=== PATIENT | female | born 1960 | race Caucasian/White ===

== ENCOUNTER → 2016-09-18 | Outpatient (CLI) | payer OTHER ==
[~2016-09-18] MED LIST: CHOL2000 PO; CYAN100020 PO; CYCL5TAB PO; IBUP-1277 PO; MAGN400T6 PO; MULT-506 PO; RIZA10TA18 PO; VALA500T39 PO; ZINC PO
--- NOTE | 2016-09-19 07:37 | MAMMOGRAPHY REPORT ---
BILATERAL DIGITAL SCREENING MAMMOGRAM TOMOSYNTHESIS WITH CAD: 09/18/2016 CLINICAL HISTORY: Routine screening. Patient has no complaints. TECHNIQUE: Breast tomosynthesis in addition to standard 2D mammography was performed. Current study was also evaluated with a Computer Aided Detection (CAD) system. COMPARISON: Comparison is made to exams dated: 09/14/2015 mammogram, 09/16/2012 mammogram, 11/29/2013 ammogram - [facility], and 11/15/2010 mammogram. BREAST COMPOSITION: The tissue of both breasts is heterogeneously dense, which may obscure small ma sses. FINDINGS: No suspicious masses, calcifications, or areas of architectural distortion are noted in e ither breast. There has been no significant interval change compared to prior exams. IMPRESSION: ACR BI-RADS CATEGORY 1: NEGATIVE There is no mammographic evidence of malignancy. A 1 year screening mammogram is recommended. The p atient will receive written notification of the results. Approximately 10% of breast cancers are not detected with mammography. A negative mammographic repor t should not delay biopsy if a clinically suggestive mass is present. Alicia Bean M.D. /:09/18/2016 16:41:41 Information Services Vice President: Gabrielle DORANTES(Melvina)(M), [facility] letter sent: Normal 1/2 BI-RADS Code: ACR BI-RADS Category 1: Negative
== END | disposition home or self-care (01) ==
LOC: C.MAMM 08:29
PROVIDERS: ATTEND Obstetrics & Gynecology
DX: Z12.31 Encounter for screening mammogram for malignant neoplasm of breast (principal)

== ENCOUNTER → 2017-03-27 | Outpatient (CLI) | payer OTHER ==
[2017-03-27 09:50] LABS: CHOLESTEROL/HDL RATIO 2.2
== END | disposition home or self-care (01) ==
LOC: C.LAB 06:41
PROVIDERS: ATTEND Physician Assistant
DX: Z00.00 Encounter for general adult medical examination without abnormal findings (principal)

== ENCOUNTER → 2017-04-24 | Outpatient (CLI) | payer OTHER ==
--- NOTE | 2017-04-24 08:27 | DIAGNOSTIC IMAGING REPORT ---
CHEST 2 VIEWS ROUTINE HISTORY: Melanoma. COMPARISON: None. FINDINGS: The lungs are clear. Cardiac silhouette is normal in size. No pleural effusions. No pneumothorax. IMPRESSION: No acute process. Electronically signed by: Chilango Park M.D. 04/24/2017 8:25 AM Dictated Date/Time: 04/24/2017 8:24 AM
[2017-04-24 09:37] LABS: BASO ABS # 0.06 K/uL (0-0.2); COMPLETE YES; EOS % 3.6 %; HEMATOCRIT 44.4 % (37-47); IG% 0.2 %; LYMPH % 16.9 %; LYMPH ABS # 1.03 K/uL (1.2-3.4); MEAN CELL VOLUME 101.6 fL (80-100); MEAN CORPUSCULAR HEMOGLOBIN 33.9 pg (25-34); MEAN CORPUSCULAR HGB CONC 33.3 g/dl (32-36); MONO % 9.4 %; NEUT % 68.9 %; PLATELET COUNT 314 K/uL (130-400); RED BLOOD COUNT 4.37 M/uL (4.2-5.4); WHITE BLOOD COUNT 6.09 K/uL (4.8-10.8)
[2017-04-24 09:51] LABS: ALT/SGPT 17 U/L (12-78); BLOOD UREA NITROGEN 8 mg/dl (7-18); BUN/CREATININE RATIO 11.1 (10-20); CALCIUM 9.3 mg/dl (8.5-10.1); CARBON DIOXIDE 32 mmol/L (21-32); CHLORIDE 109 mmol/L (98-107); CREATININE 0.75 mg/dl (0.60-1.20); GLUCOSE 84 mg/dl (70-99); POTASSIUM 4.5 mmol/L (3.5-5.1); SODIUM 142 mmol/L (136-145)
[2017-04-24 09:54] LABS: ALB/GLOB RATIO 1.2 (0.9-2); ALKALINE PHOSPHATASE 69 U/L (45-117); AST/SGOT 17 U/L (15-37)
== END | disposition home or self-care (01) ==
LOC: C.LAB 07:38
PROVIDERS: ATTEND Dermatology
DX: C43.9 Malignant melanoma of skin, unspecified (principal)

== ENCOUNTER → 2017-04-28 | Outpatient (CLI) | payer OTHER | END | disposition home or self-care (01) | LOC: C.LAB 09:49 | PROVIDERS: ATTEND Dermatology | DX: R89.9 Unspecified abnormal finding in specimens from other organs, systems and tissues (principal); E55.9 Vitamin D deficiency, unspecified ==

== ENCOUNTER → 2017-04-30 | Outpatient (CLI) | payer OTHER | END | disposition home or self-care (01) | LOC: C.PATHSPEC 13:04 | PROVIDERS: ATTEND Plastic Surgery | DX: C43.62 Malignant melanoma of left upper limb, including shoulder (principal) ==

== ENCOUNTER → 2017-09-25 | Outpatient (CLI) | payer OTHER | END | disposition home or self-care (01) | LOC: C.LAB 10:05 | PROVIDERS: ATTEND Neuromusculoskeletal Medicine & OMM | DX: M54.2 Cervicalgia (principal); R07.89 Other chest pain; R22.1 Localized swelling, mass and lump, neck; R00.2 Palpitations ==

== ENCOUNTER → 2017-10-05 | Outpatient (CLI) | payer OTHER ==
--- NOTE | 2017-10-06 13:28 | MAMMOGRAPHY REPORT ---
BILATERAL DIGITAL SCREENING MAMMOGRAM TOMOSYNTHESIS WITH CAD: 10/05/2017 CLINICAL HISTORY: Routine screening. Patient has no complaints. TECHNIQUE: Breast tomosynthesis in addition to standard 2D mammography was performed. Current study was also evaluated with a Computer Aided Detection (CAD) system. COMPARISON: Comparison is made to exams dated: 09/18/2016 mammogram, 09/14/2015 mammogram, 11/29/2013 ma mmogram, 09/16/2012 mammogram - [facility], 11/15/2010 mammogram, and 07/30/2007 mamm ogram. BREAST COMPOSITION: The tissue of both breasts is heterogeneously dense, which may obscure small mas ses. FINDINGS: There is a 9 mm asymmetry in the anterior subareolar left breast, best seen on the CC view , for which additional spot compression tomosynthesis views with nipples in profile and possible ultr asound are recommended. There are benign-appearing calcifications in the left breast. No other suspicious mass, architectura l distortion or cluster of microcalcifications is seen bilaterally. IMPRESSION: ACR BI-RADS CATEGORY 0: INCOMPLETE EVALUATION: NEED ADDITIONAL IMAGING EVALUATION The 9 mm asymmetry in the anterior, subareolar left breast on the CC view needs additional evaluation . The patient will be called to schedule an appointment. Approximately 10% of breast cancers are not detected with mammography. A negative mammographic report should not delay biopsy if a clinically suggestive mass is present. Michelle Riddle M.D. ay/:10/05/2017 17:07:03 Acute Dialysis Nurse: Patito RANGEL)(Milind), [facility] letter sent: Addl Imaging 0 BI-RADS Code: ACR BI-RADS Category 0: Incomplete Evaluation: Need Additional Imaging Evaluation
== END | disposition home or self-care (01) ==
LOC: C.MAMM 13:01
PROVIDERS: ATTEND Obstetrics & Gynecology
DX: Z12.31 Encounter for screening mammogram for malignant neoplasm of breast (principal); N64.89 Other specified disorders of breast

== ENCOUNTER → 2017-10-14 | Outpatient (CLI) | payer OTHER ==
--- NOTE | 2017-10-14 09:36 | DIAGNOSTIC IMAGING REPORT ---
SOFT TISS HEAD/NECK-THYROID CLINICAL HISTORY: 57 years-old Female with M54.2 Neck painR07.89 Chest ivdguyakpF59.1 Fullness of neckR00.2. Acute neck pain COMPARISON: None available TECHNIQUE: Multiple real time sonographic images of the thyroid were obtained accessing sears scale appearance and color doppler flow. FINDINGS: MEASUREMENTS: Right lobe: 5.3 x 1.5 x 1.7 cm Left lobe: 4.5 x 1.5 x 1.6 cm Isthmus: 0.4 cm PARENCHYMA: The thyroid parenchymal echotexture is homogeneous. NODULES: No discrete nodules are appreciated. IMPRESSION: Unremarkable sonographic appearance of the thyroid without focal nodule identified. The above report was generated using voice recognition software. It may contain grammatical, syntax or spelling errors. Electronically signed by: Jesus Rosario M.D. 10/14/2017 9:35 AM Dictated Date/Time: 10/14/2017 9:34 AM
== END ==
LOC: C.ULTR 08:47
PROVIDERS: ATTEND Neuromusculoskeletal Medicine & OMM
DX: M54.2 Cervicalgia (principal); R22.1 Localized swelling, mass and lump, neck; R00.2 Palpitations; R07.89 Other chest pain

== ENCOUNTER → 2017-10-14 | Outpatient (CLI) | payer OTHER ==
--- NOTE | 2017-10-15 15:10 | MAMMOGRAPHY REPORT ---
UNILATERAL LEFT DIGITAL DIAGNOSTIC MAMMOGRAM TOMOSYNTHESIS AND TARGETED LEFT ULTRASOUND: 10/14/2017 CLINICAL HISTORY: 57-year-old woman called back from screening mammography for a 9 mm asymmetry in th e anterior subareolar left breast, best seen on the CC view. TECHNIQUE: Breast tomosynthesis in addition to standard 2D mammography was performed. COMPARISON: Comparison is made to exams dated: 10/05/2017 mammogram, 09/18/2016 mammogram, 09/14/2015 ma mmogram, 11/29/2013 mammogram, 09/16/2012 mammogram - [facility], and 11/15/2010 mammog jade. BREAST COMPOSITION: The tissue of the left breast is heterogeneously dense, which may obscure small masses. FINDINGS: Spot compression left CC and MLO tomosynthesis images were obtained. The supplemental kevon synthesis views of the anterior subareolar left breast demonstrate effacement of the 9 mm nodular asy mmetry, best seen on the left CC projection. Currently, no focal area of architectural distortion, d efinite mass or suspicious calcifications are seen. Further evaluation with ultrasound was performed . Targeted ultrasound was performed in the periareolar and retroareolar left breast. There are multipl e prominent and ectatic ducts. Many of the ducts contain internal isoechoic debris, particularly see n in the 12:00 and upper inner quadrant region but also some in the 3:00 periareolar left breast. Th is most likely represents bland debris given that it is present in multiple ducts. Additionally, the patient reports no left nipple discharge. There is no focal ductal dilation or focal intraductal ma ss identified. Overall, no suspicious solid or cystic mass is seen. IMPRESSION: ACR-BI-RADS CATEGORY 3: PROBABLY BENIGN, TARGETED ULTRASOUND ACR-BI-RADS CATEGORY 3: PRO BABLY BENIGN There is effacement of the asymmetry in the anterior subareolar left breast with supplemental tomosyn thesis images and benign duct ectasia identified on targeted ultrasound. Given that the debris is id entified in multiple ducts this most likely represents bland debris or fibrocystic change. However, a short interval follow up left diagnostic tomosynthesis mammogram and ultrasound is recommended to e nsure stability in 6 months. Approximately 10% of breast cancers are not detected with mammography. A negative mammographic report should not delay biopsy if a clinically suggestive mass is present. Michelle Riddle M.D. ay/:10/14/2017 15:19:18 Gas Regulator Repairer Helper: Kym Valencia RT(R)(M), [facility] letter sent: Follow Up Recommended 3 BI-RADS Code: ACR-BI-RADS Category 3: Probably Benign Ultrasound BI-RADS: ACR-BI-RADS Category 3: Pr obably Benign
== END ==
LOC: C.MAMM 14:23
PROVIDERS: ATTEND Obstetrics & Gynecology
DX: N64.89 Other specified disorders of breast (principal)

== ENCOUNTER → 2018-04-09 | Outpatient (CLI) | payer OTHER ==
[~2018-04-09] MED LIST changes: -VALA500T39 PO; +VALA500T41 PO
--- NOTE | 2018-04-09 15:29 | MAMMOGRAPHY REPORT ---
UNILATERAL LEFT DIGITAL DIAGNOSTIC MAMMOGRAM TOMOSYNTHESIS WITH CAD AND LEFT ULTRASOUND: 04/09/2018 CLINICAL HISTORY: Six-month follow-up left breast. The patient reports a history of a right duct exci frances in 2009 for nipple discharge, which yielded benign pathology. The patient denies any left nipple discharge, palpable lumps, or other complaints. 6 Month Follow-up Left. TECHNIQUE: The study was acquired using full field digital technology and interpreted from soft copy. Breast tomosynthesis in addition to standard 2D mammography was performed. Current study was also ev aluated with a Computer Aided Detection (CAD) system. Left CC and MLO 2D and tomosynthesis images we re obtained. COMPARISON: Comparison is made to exams dated: 10/14/2017 mammogram, 10/05/2017 mammogram, 09/18/2016 ma mmogram, 09/14/2015 mammogram, 11/29/2013 mammogram, and 09/16/2012 mammogram - [facility]. BREAST COMPOSITION: The tissue of left breast is heterogeneously dense, which may obscure small denise s. FINDINGS: There are no suspicious masses, calcifications, or areas of architectural distortion noted in the lef t breast. There has been no significant interval change mammographically compared to prior exams. Targeted ultrasound was again performed of the left subareolar breast in the region of the ducts seen on the prior exam. Again noted are prominent ducts throughout the left subareolar breast consistent with duct ectasia. Many of the ducts contain internal isoechoic debris, which appears similar to Oct 2017 exam. No focal intraductal mass is evident. No suspicious masses or other suspicious son ographic abnormalities are seen. Additionally, the patient denies any nipple discharge. IMPRESSION: ACR BI-RADS CATEGORY 2: BENIGN, ULTRASOUND ACR BI-RADS CATEGORY 2: BENIGN Duct ectasia in the left subareolar breast with areas of internal ductal debris appears similar to oct 2018 exam. No focal intraductal mass is evident, and the patient denies any left nipple discha rge. Findings are considered benign and compatible with duct ectasia. There is no mammographic or s onographic evidence of malignancy. Return to annual mammogram screening schedule is recommended, due October 2018. Also recommend clinical follow-up and if the patient develops left nipple discharge, the patient should return for repeat imaging. The patient has been verbally notified of the results. Some breast cancers are not detected with mammography. A negative mammographic report should not raciel y biopsy if a clinically suggestive mass is present. Alicia Bean M.D. ah/:04/09/2018 09:16:34 Landscape Account Manager: RT Kimo(R)(M), [facility]; Alicia Bean MD, [facility] letter sent: Normal 1/2 OVERALL STUDY BIRADS: 2 Benign
== END | disposition home or self-care (01) ==
LOC: C.MAMM 08:50
PROVIDERS: ATTEND Obstetrics & Gynecology
DX: N60.42 Mammary duct ectasia of left breast (principal)

== ENCOUNTER → 2018-04-14 | Outpatient (CLI) | payer OTHER ==
--- NOTE | 2018-04-14 08:26 | DIAGNOSTIC IMAGING REPORT ---
CHEST 2 VIEWS ROUTINE HISTORY: C43.9 Malignant melanoma COMPARISON: Chest 04/24/2017. FINDINGS: The lungs are clear. Cardiac silhouette is normal in size. No pleural effusions. No pneumothorax. IMPRESSION: No acute process. Electronically signed by: Chilango Park M.D. 04/14/2018 8:25 AM Dictated Date/Time: 04/14/2018 8:22 AM
[2018-04-14 10:00] LABS: BASO ABS # 0.04 K/uL (0-0.2); EOS ABS # 0.25 K/uL (0-0.5); HEMATOCRIT 39.9 % (37-47); HEMOGLOBIN 13.2 g/dL (12.0-16.0); LYMPH % 31.4 %; MEAN CORPUSCULAR HEMOGLOBIN 33.4 pg (25-34); MEAN CORPUSCULAR HGB CONC 33.1 g/dl (32-36); MEAN PLATELET VOLUME 9.8 fL (7.4-10.4); MONO % 6.3 %; MONO ABS # 0.26 K/uL (0.11-0.59); NEUT % 55.3 %; NEUT ABS # 2.29 K/uL (1.4-6.5); PLATELET COUNT 255 K/uL (130-400); RED CELL DISTRIBUTION WIDTH CV 12.7 % (11.5-14.5); RED CELL DISTRIBUTION WIDTH SD 46.9 fL (36.4-46.3); WHITE BLOOD COUNT 4.14 K/uL (4.8-10.8)
[2018-04-14 10:43] LABS: ALBUMIN 3.7 gm/dl (3.4-5.0); ALKALINE PHOSPHATASE 65 U/L (45-117); ALT/SGPT 32 U/L (12-78); AST/SGOT 19 U/L (15-37); BLOOD UREA NITROGEN 15 mg/dl (7-18); CALCIUM 8.9 mg/dl (8.5-10.1); CARBON DIOXIDE 28 mmol/L (21-32); CHOLESTEROL 173 mg/dl (0-200); GLUCOSE 75 mg/dl (70-99); GLUCOSE,FASTING 75 mg/dl (70-99); LDL CHOLESTEROL CALCULATED 86 mg/dl; POTASSIUM 4.4 mmol/L (3.5-5.1); SODIUM 142 mmol/L (136-145); TOTAL PROTEIN 6.8 gm/dl (6.4-8.2)
== END | disposition home or self-care (01) ==
LOC: C.RAD 07:51
PROVIDERS: ATTEND Neuromusculoskeletal Medicine & OMM
DX: Z00.00 Encounter for general adult medical examination without abnormal findings (principal); E55.9 Vitamin D deficiency, unspecified; C43.9 Malignant melanoma of skin, unspecified; R89.9 Unspecified abnormal finding in specimens from other organs, systems and tissues

== ENCOUNTER 2021-03-29 11:51 | Observation (INO) ==
--- NOTE | 2021-03-29 13:07 | History & Physical Report ---
Date of Service March 29, 2021 Assessment & Plan (1) Cellulitis of leg: Plan: admit for IV antibiotics, CT ordered will ask hospitalist to see, consider ortho consult depending on CT History of Present Illness Primary Care Provider: William Polo, DO 61 y/o female with worsening cellulitis RLE after I&D was performed in the clinic [address] Todd. Seen in follow-up and sent for additional imaging and IV therapy. Allergies Allergy/AdvReac Type Severity Reaction Status Date / Time No Known Drug Allergies Allergy Unknown . Verified 03/29/21 16:22 Home Medications Medication Instructions Recorded Confirmed Type magnesium 250 mg tablet 500 mg PO QAM 01/20/19 03/29/21 History multivitamin 1 tab PO QAM 04/19/19 03/29/21 History calcium citrate 250 mg PO QAM tab 04/29/19 03/29/21 History cholecalciferol (vitamin D3) 125 5,000 units PO QAM 04/29/19 03/29/21 History mcg (5,000 unit) capsule lactobacillus combination no.4 3 3,000 mmu cells PO QAM 03/22/20 03/29/21 History billion cell capsule (Probiotic) ondansetron 4 mg disintegrating 4 mg PO TID PRN #30 tab 08/03/20 03/29/21 Rx tablet rizatriptan 10 mg tablet 10 mg PO Q2H PRN #9 tab MDD 3 11/09/20 03/29/21 Rx tablets/day prenat.vits,wilmar,qyw-dbvq-mxunm 1 tab PO QAM 02/07/21 03/29/21 History zinc 50 mg tablet 50 mg PO QAM 02/07/21 03/29/21 History cephalexin 500 mg capsule 500 mg PO QID 10 Days #40 cap 03/27/21 03/29/21 Rx valacyclovir 500 mg tablet 500 mg PO QAM 03/29/21 03/29/21 History Past Med/Surg History Medical History Chronic low back pain Family history of [place] (myocardial infarction) Mother Family history of stroke father GERD without esophagitis Migraine with aura and without status migrainosus, not intractable Skin cancer Vitamin D deficiency Surgical History History of colonoscopy History of hysterectomy History of surgery on right wrist ORIF History of tubal ligation History of umbilical hernia repair Hx of breast surgery DUCT REMOVED Hx of melanoma excision LEFT ARM Status post incision and drainage (05/31/20) Incision and drainage and culture of left leg lesion in office 05/31/20 Dr. Todd Status post incision and drainage (03/27/21) I&D of right leg abscess 03/27/21 Dr. Todd in office 03/27/21 Family History Mother Hypertension Hypercholesteremia Heart disease Father Hypercholesteremia Hypertension Diabetes Stroke Grandmother Hypertension Grandmother Hypertension Diabetes Cardiac disorder Grandfather Cardiac disorder Heart disease Aunt Hypertension Uncle Hypertension Denies family history of Ovarian cancer Prostate cancer Myocardial infarction Breast cancer Colorectal cancer Social History Smoking Status: Former smoker Tobacco Type: Cigarettes Second Hand Exposure: No; Do You Dip or Chew Tobacco: No; Tobacco Cessation Education Requested by Patient: No Hx Alcohol Use: Yes Alcohol type: wine Hx Substance Use: No Preferred Language: Maori Communication Ability: Effective Visual Impairment: No Limitations Hearing Ability: Normal Human Resources Coordinator Required: No Beliefs That Will Affect Care: None Current Living Situation: Alone current occupational status: employed current occupation: Registered nurse Other Information That Helps Us Care for You: No Feels Safe at Home: Yes Safety Concerns: Feels Safe At This Time Childhood Exposure to Second-Hand Smoke: No Dental Care, Regularly: Yes Physical Activity Frequency: Daily Seatbelt Use: always Sunscreen Use: Yes Assistive Devices: None Physical Exam Physical Exam: Please see note from clinic visit today Results & Data Results & Data ([facility]) Vital Signs (Past 12 Hours) Vital Signs Temp Pulse Resp BP Pulse Ox 03/29/21 12:05 37.2 C 81 18 118/77 98
[2021-03-29 14:38] LABS: Appearance Urine Clear (Clear); Bilirubin Urine Negative (Negative); Blood Urine Negative (Negative); Color Urine Yellow; Glucose Urine UA Negative (Negative); Ketones Urine Negative (Negative); Leukocyte Esterase Urine Negative (Negative); Nitrite Urine Negative (Negative); Protein Urine Negative (Negative); Specific Gravity Urine 1.007 (1.000-1.030); Urobilinogen Urine Negative (Negative); pH Urine 6.5 (4.5-7.5)
[2021-03-29 14:39] LABS: Basophils # (auto) 0.04 K/uL (0-0.2); Basophils % (auto) 0.5 %; Eosinophils # (auto) 0.19 K/uL (0-0.5); Eosinophils % (auto) 2.2 %; Hematocrit (blood only) 43.9 % (37-47); Hemoglobin 14.8 g/dL (12.0-16.0); Immature Granulocytes # (auto) 0.01 K/uL (0.00-0.02); Immature Granulocytes % (auto) 0.1 %; Lymphocytes # (auto) 1.72 K/uL (1.2-3.4); Lymphocytes % (auto) 19.8 %; Mean Corpuscular Hemoglobin 33.8 pg (25-34); Mean Corpuscular Hgb Conc 33.7 g/dL (32-36); Mean Corpuscular Volume 100.2 fL (80-100); Monocytes # (auto) 0.89 K/uL (0.11-0.59); Monocytes % (auto) 10.3 %; Neutrophils # (auto) 5.82 K/uL (1.4-6.5); Neutrophils % (auto) 67.1 %; Platelet Count 267 K/uL (130-400); RDW Coefficient of Variation 12.7 % (11.5-14.5); RDW Standard Deviation 46.8 fL (36.4-46.3); Red Blood Count 4.38 M/uL (4.2-5.4); White Blood Count 8.67 K/uL (4.8-10.8)
[2021-03-29 15:03] LABS: Albumin Level 4.2 gm/dl (3.4-5.0); BUN Creatinine Ratio 11.7 (10-20); Calcium 9.2 mg/dl (8.5-10.1); Creatinine Clr Calc Pharmacy 68.1 ml/min; Est GFR (African American) 104.5 ml/min; Est GFR (Non-African American) 90.1 ml/min; Potassium 3.5 mmol/L (3.5-5.1)
[2021-03-29 15:06] LABS: Albumin Globulin Ratio 1.1 (0.9-2); Bilirubin,Total 0.7 mg/dl (0.2-1); Globulin 3.9 gm/dl (2.5-4.0); Total Protein 8.1 gm/dl (6.4-8.2)
--- NOTE | 2021-03-29 15:51 | Electrocardiogram Report ---
Test Reason : Blood Pressure : / mmHG Vent. Rate : 065 BPM Atrial Rate : 065 BPM P-R Int : 190 ms QRS Dur : 084 ms QT Int : 404 ms P-R-T Axes : 047 029 057 degrees QTc Int : 420 ms Normal sinus rhythm with sinus arrhythmia no longer present When compared with ECG of 10-FEB-2019 09:45, No significant change Confirmed by Camilo Velasco ([id number]) on 03/29/2021 3:50:30 PM Referred By: REFERRED SELF Confirmed By:Camilo Velasco
[2021-03-29] MEDS ORDERED: oxyCODONE HCL IR 5 MG TAB (IMMEDIATE RELEASE) PO PRN (17:58)
[2021-03-29] MEDS ORDERED: ONDANSETRON INJ 2 MG/ML 2 ML VIAL IV PRN (17:58)
[2021-03-29] MEDS ORDERED: PIPERACILL/TAZOBAC CONSULT ACTIVE PRN (17:58)
[2021-03-29] MEDS ORDERED: RIZATRIPTAN BENZOATE 10 MG TAB PO PRN (17:58)
[2021-03-29] MEDS ORDERED: MoRPHine SULFATE 2 MG/ML CARP IV PRN (17:58)
[2021-03-29] MEDS ORDERED: VANCOMYCIN CONSULT ACTIVE PRN (17:58)
[2021-03-29] MEDS ORDERED: MoRPHine SULFATE 4 MG/ML 1 ML CARP\\VIAL IV PRN (17:58)
[2021-03-29] MEDS ORDERED: ACETAMINOPHEN 325 MG TAB PO PRN (17:58)
[2021-03-29] MEDS ORDERED: PIPERACILLIN/TAZOBACTAM 3.375 GM in DEXTROSE 5% 100 ML IV ONE (18:15)
[2021-03-29] MEDS ORDERED: VANCOMYCIN HCL 1,500 MG in SODIUM CHLORIDE 0.9% 500 ML IV ONE (18:15)
[2021-03-29] MEDS ORDERED: OPTIRAY 320 100ml IV ONE (19:55)
--- NOTE | 2021-03-29 20:25 | CT Scan Report ---
CT knee RT w con HISTORY: 61 years-old Female celluitis RLE acute pain and swelling of the right lower extremity COMPARISON: None TECHNIQUE: Multiple axial CT images of the right lower extremity were obtained following the intraven ous ministration 94 mL Optiray 320. A dose lowering technique was used consistent with the principals of GLENDY. FINDINGS: Mild subcutaneous edema and skin thickening involves the posterior knee. No fluid collection or opaqu e foreign body. No enhancing mass. The musculature is within normal limits. Tendons and ligaments are not well evaluated by CT technique. Minimal tricompartmental osteoarthritis. No large joint effusion . No acute fracture, dislocation, osteochondral defect or intra-articular loose body. IMPRESSION: 1. No acute fracture. 2. Mild subcutaneous edema and skin thickening of the posterior knee suggestive of cellulitis. No flu id collection. 3. No joint effusion. ACT 112: Negative or not required by law. The above report was generated using voice recognition software. It may contain grammatical, syntax o r spelling errors. Electronically signed by: Montez Rosario M.D. 03/29/2021 8:23 PM
--- NOTE | 2021-03-29 21:16 | Pharmacy Report ---
Pharmacy Abx Initial Consult - Date of Service March 29, 2021 - Pharmacy Dosing Scope Date of Consult: 03/29/21 Consultation requested by: James Drake PA-C Pharmacy is consulted to initiate Vancomycin + Zosyn IV/PO dosing therapy, order appropriate labs and adjust drug dose/frequency. - Subjective The patient is a 61 year old F admitted on 03/29/21 13:36 with worsening cellulitis RLE after I&D was performed in the clinic [address] Todd. Seen in follow-up and sent here for additional imaging and IV therapy. - Objective Height: 5 ft 1 in Weight: 56.971 kg Vital Signs (Past 12hrs): Vital Signs Temp Pulse Pulse Resp BP BP Pulse Ox 03/29/21 17:30 36.7 C 78 18 131/82 100 03/29/21 16:16 67 18 151/98 H 99 03/29/21 14:45 69 18 137/84 99 03/29/21 12:05 37.2 C 81 18 118/77 98 Lab Results (24hrs): Laboratory Tests (24 Hours) 03/29/21 03/29/21 14:27 14:27 WBC 8.67 Neut # (Auto) 5.82 Creatinine 0.73 Est Cr Clr Drug Dosing 68.1 - Assessment & Plan Assessment 61 year old F with worsening cellulitis RLE after I&D was performed in the in [address] Todd. Admitted for IV antibiotics and imaging. Afebrile, WBC normal. Plan Vancomycin + Zosyn for treatment of Cellulitis Vancomycin IV 1500mg IV x1 dose at 2037 (25mg/kg) then 1g IV Q12H Patient meets criteria for vancomycin AUC dosing nomogram AUC/SHAYNA is the preferred PK/PD target for vancomycin Target AUC/SHAYNA = 400-600 AUC guided dosing is effective and associated with decreased risk of nephrotoxicity * Trough/Random level ordered for 03/31/21 Piperacillin/tazobactam * 3.375 g bolus administered over 30 minutes, then 3.375 g IV extended infusion every 8 hours for CrCl greater than 20 mL/min Pharmacy will continue to follow and will adjust dose/frequency as necessary. Thank you.
[2021-03-29] MEDS: PIPERACILLIN/TAZOBACTAM 3.375 GM in DEXTROSE 5% 100 ML IV SCH (23:15)
[2021-03-30] MEDS: VANCOMYCIN HCL 1,000 MG in SODIUM CHLORIDE 0.9% 250 ML IV SCH ×2 (06:15→17:51)
[2021-03-30] MEDS: PIPERACILLIN/TAZOBACTAM 3.375 GM in DEXTROSE 5% 100 ML IV SCH ×3 (06:15→22:52)
[2021-03-30 08:15] LABS: Basophils # (auto) 0.04 K/uL (0-0.2); Basophils % (auto) 0.5 %; Eosinophils # (auto) 0.23 K/uL (0-0.5); Eosinophils % (auto) 2.8 %; Hematocrit (blood only) 39.2 % (37-47); Hemoglobin 13.3 g/dL (12.0-16.0); Immature Granulocytes # (auto) 0.01 K/uL (0.00-0.02); Immature Granulocytes % (auto) 0.1 %; Lymphocytes # (auto) 1.28 K/uL (1.2-3.4); Lymphocytes % (auto) 15.8 %; Mean Corpuscular Hemoglobin 34.2 pg (25-34); Mean Corpuscular Hgb Conc 33.9 g/dL (32-36); Mean Corpuscular Volume 100.8 fL (80-100); Mean Platelet Volume 8.8 fL (7.4-10.4); Monocytes # (auto) 0.88 K/uL (0.11-0.59); Monocytes % (auto) 10.9 %; Neutrophils # (auto) 5.66 K/uL (1.4-6.5); Neutrophils % (auto) 69.9 %; Platelet Count 274 K/uL (130-400); RDW Coefficient of Variation 12.7 % (11.5-14.5); Red Blood Count 3.89 M/uL (4.2-5.4)
[2021-03-30] MEDS: MAGNESIUM OXIDE 400 MG TAB PO SCH (08:15)
[2021-03-30] MEDS: terbinafine HCL 250 MG TAB PO SCH (08:15)
[2021-03-30] MEDS: valACYclovir HCL 500 MG TABLET PO SCH (08:15)
[2021-03-30] MEDS: PRENATAL VITAMIN 1 TAB PO SCH (08:15)
[2021-03-30] MEDS: MULTIVITAMIN TAB PO SCH (08:15)
--- NOTE | 2021-03-30 08:34 | Surgery Progress Note ---
Date of Service March 30, 2021 Assessment & Plan (1) Cellulitis of leg: Plan: Overall the patient is markedly improved with the present antibiotic therapy She did states she had multiple tick bites and she pulled 1 out of the area of that she has a cellulitis approximately 2 weeks ago We will order a Lyme test medical service is to see patient making sure that the appropriate test will be ordered and leave it up to the recommendation regarding further antibiotic therapy Admission and Anticipated Discharge Date Admission Date: March 29, 2021 Subjective Feels much better less discomfort Physical Exam Physical Exam: Area of cellulitis is markedly decreased virtually no drainage from the I&D site Results & Data ([facility]) Vital Signs (Past 12 Hours) Vital Signs Temp Pulse Resp BP Pulse Ox 03/30/21 07:00 36.7 C 71 20 100/67 97 03/29/21 23:52 36.7 C 87 16 95/63 L 97 PG Care Time/CCT Total # of Minutes Spent Total Time Spent with Patient: Total time spent is greater than 50% in coordination of care (as documented) at patient's floor/unit and/or counseling patient: Coding Level of Care Code 55244 Subseq Hosp Care Lvl 1 Diagnoses Cellulitis of leg L03.119
[2021-03-30 08:45] LABS: Creatinine Clr Calc Pharmacy 61.8 ml/min; Est GFR (African American) 102.8 ml/min; Est GFR (Non-African American) 88.7 ml/min
[2021-03-30 09:01] LABS: BUN Creatinine Ratio 11.5 (10-20); Calcium 8.8 mg/dl (8.5-10.1); Creatinine Clr Calc Pharmacy 64.4 ml/min; Est GFR (African American) 108.1 ml/min; Est GFR (Non-African American) 93.2 ml/min; Potassium 4.1 mmol/L (3.5-5.1)
[2021-03-30 09:10] LABS: Folate (Folic Acid) > 20.00 ng/ml (>5.38); Vitamin B12 625 pg/ml (193-986)
[2021-03-30 09:54] LABS: Lyme Ab IgG w/WB Rflx Negative (Negative); Lyme Ab IgM w/WB Rflx Negative (Negative)
--- NOTE | 2021-03-30 10:42 | Hospitalist Consultation ---
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 Could not have converted, but either way Doxy will cover at discharge Continue to monitor response (2) Cutaneous abscess of right lower extremity: as above (3) Migraine with aura and without status migrainosus, not intractable: had headache yesterday -- stress/anxiety/infection chronic hx -- triptan available prn (4) DVT prophylaxis: --> Ambulation encouraged --> has been up and walking the halls Dispo: Continue to monitor response on IV abx and plans for d/c tomorrow on Doxy PO --> Plan was discussed with Dr. Xie. Will assist with d/c instructions if needed. History of Present Illness Reason for Consultation: cellulitis Requesting Physician: Dr Xie Attending Physician: Luis Enrique Xie MD, [facility] History of Present Illness 61yo female presented to ER after follow up with general surgery following I&D of abscess to posterior R thigh on 03/27 in the office with Dr. Todd. Patient was sent from office on Keflex and had follow up appointment with Dr. Todd on 03/29 and noted worsening redness/erythema, pain and swelling to her thigh in the area of I&D. No cultures were obtained at that time. She was sent on Keflex and was sent as hopeful direct admit but ended up having to go through the ER. She did note a tick approximately two weeks ago in the same location of cellulitis and we discussed Lyme testing negative. She noted previous abscess on other leg last year -- cultures with gram + bacilli at that time. She was placed on Zosyn and Vanco and noted significant improvement over the past 24 hours She would feel more comfortable if remained on IV antibiotics for overnight. Discussed doxycycline for skin/soft tissue at discharge. Pain controlled and without need for medication at this time. She is to work tomorrow, Thursday and of this week. Jury duty on Thursday. Discussed would remain off for week until infection resolved prior to returning to work. No fever, chills, chest pain, shortness of breath, abdominal pain, nausea or vomiting at this time. No BM but she notes she has not gotten her Metamucil- will order. Recently completed course of antifungal for onchymycosis of great toes -- almost completely resolved. Allergies Allergy/AdvReac Type Severity Reaction Status Date / Time No Known Drug Allergies Allergy Unknown . Verified 03/29/21 16:22 Home Medications Medication Instructions Recorded Confirmed Type magnesium 250 mg tablet 500 mg PO QAM 01/20/19 03/29/21 History multivitamin 1 tab PO QAM 04/19/19 03/29/21 History calcium citrate 250 mg PO QAM tab 04/29/19 03/29/21 History cholecalciferol (vitamin D3) 125 5,000 units PO QAM 04/29/19 03/29/21 History mcg (5,000 unit) capsule lactobacillus combination no.4 3 3,000 mmu cells PO QAM 03/22/20 03/29/21 History billion cell capsule (Probiotic) ondansetron 4 mg disintegrating 4 mg PO TID PRN #30 tab 08/03/20 03/29/21 Rx tablet rizatriptan 10 mg tablet 10 mg PO Q2H PRN #9 tab MDD 3 11/09/20 03/29/21 Rx tablets/day prenat.vits,wilmar,wsx-lcms-uxghw 1 tab PO QAM 02/07/21 03/29/21 History zinc 50 mg tablet 50 mg PO QAM 02/07/21 03/29/21 History cephalexin 500 mg capsule 500 mg PO QID 10 Days #40 cap 03/27/21 03/29/21 Rx valacyclovir 500 mg tablet 500 mg PO QAM 03/29/21 03/29/21 History Patient History Medical History Chronic low back pain Family history of NV (myocardial infarction) Mother Family history of stroke father GERD without esophagitis Migraine with aura and without status migrainosus, not intractable Skin cancer Vitamin D deficiency Surgical History History of colonoscopy History of hysterectomy History of surgery on right wrist ORIF History of tubal ligation History of umbilical hernia repair Hx of breast surgery DUCT REMOVED Hx of melanoma excision LEFT ARM Status post incision and drainage (05/31/20) Incision and drainage and culture of left leg lesion in office 05/31/20 Dr. Todd Status post incision and drainage (03/27/21) I&D of right leg abscess 03/27/21 Dr. Todd in office 03/27/21 Family History Mother Hypertension Hypercholesteremia Heart disease Father Hypercholesteremia Hypertension Diabetes Stroke Grandmother Hypertension Grandmother Hypertension Diabetes Cardiac disorder Grandfather Cardiac disorder Heart disease Aunt Hypertension Uncle Hypertension Denies family history of Ovarian cancer Prostate cancer Myocardial infarction Breast cancer Colorectal cancer Social History Smoking Status: Former smoker Tobacco Type: Cigarettes Second Hand Exposure: No; Do You Dip or Chew Tobacco: No; Tobacco Cessation Education Requested by Patient: No Hx Alcohol Use: Yes Alcohol type: wine Hx Substance Use: No Preferred Language: Bermudian Communication Ability: Effective Visual Impairment: No Limitations Hearing Ability: Normal Shirt Finisher Required: No Beliefs That Will Affect Care: None Current Living Situation: Alone current occupational status: employed current occupation: Registered nurse Other Information That Helps Us Care for You: No Feels Safe at Home: Yes Safety Concerns: Feels Safe At This Time Childhood Exposure to Second-Hand Smoke: No Dental Care, Regularly: Yes Physical Activity Frequency: Daily Seatbelt Use: always Sunscreen Use: Yes Assistive Devices: None Review of Systems Review of Systems: All systems reviewed & are unremarkable except as noted in HPI & below Physical Exam Physical Exam: WN, WD, laying in bed on phone. No acute distress Eyes anicteric, no scleral abn appreciated ENT mmm, trachea midline without deviation Resp: CTAB, no accessory muscle use, no w/c/r CV: RRR, no m/r/g MSK: moves all extremities Skin: 3cm diameter area of induration to posterior R thigh, incision noted from prior I&D, indurated (reported less), no purulant material able to be expressed, tender to palpation resolving onychomycosis to lateral great toe Results & Data Results & Data ([facility]) Vital Signs (Past 12 Hours) Vital Signs Temp Pulse Resp BP Pulse Ox 03/30/21 07:00 36.7 C 71 20 100/67 97 03/29/21 23:52 36.7 C 87 16 95/63 L 97 Laboratory Results 03/30/21 03/30/21 03/30/21 Range/Units 08:05 07:58 07:58 WBC (4.8-10.8) K/uL RBC (4.2-5.4) M/uL Hgb (12.0-16.0) g/dL Hct (37-47) % MCV (80-100) fL MCH (25-34) pg MCHC (32-36) g/dL RDW Std Deviation (36.4-46.3) fL RDW Coeff of Kim (11.5-14.5) % Plt Count (130-400) K/uL MPV (7.4-10.4) fL Immature Gran % (Auto) % Neut % (Auto) % Lymph % (Auto) % [place] % (Auto) % Eos % (Auto) % Baso % (Auto) % Neut # (Auto) (1.4-6.5) K/uL Lymph # (Auto) (1.2-3.4) K/uL [place] # (Auto) (0.11-0.59) K/uL Eos # (Auto) (0-0.5) K/uL Baso # (Auto) (0-0.2) K/uL Immature Gran # (Auto) (0.00-0.02) K/uL Sodium 136 (136-145) mmol/L Potassium 4.1 D (3.5-5.1) mmol/L Chloride 107 (98-107) mmol/L Carbon Dioxide 24 (21-32) mmol/L Anion Gap 5.0 (3-11) BUN 8 (7-18) mg/dl Creatinine 0.71 (0.6-1.2) mg/dl Est Cr Clr Drug Dosing 64.4 ml/min Est GFR ( Amer) 108.1 ml/min Est GFR (Non-Af Amer) 93.2 ml/min BUN/Creatinine Ratio 11.5 (10-20) Glucose 91 (70-99) mg/dl Calcium 8.8 (8.5-10.1) mg/dl Total Bilirubin (0.2-1) mg/dl AST (15-37) U/L ALT (12-78) U/L Alkaline Phosphatase (45-117) U/L Total Protein (6.4-8.2) gm/dl Albumin (3.4-5.0) gm/dl Globulin (2.5-4.0) gm/dl Albumin/Globulin Ratio (0.9-2) Vitamin B12 625 (193-986) pg/ml Folate > 20.00 (>5.38) ng/ml Urine Color Urine Appearance (Clear) Urine pH (4.5-7.5) Ur Specific [place] (1.000-1.030) Urine Protein (Negative) Urine Glucose (UA) (Negative) Urine Ketones (Negative) Urine Blood (Negative) Urine Nitrite (Negative) Urine Bilirubin (Negative) Urine Urobilinogen (Negative) Ur Leukocyte Esterase (Negative) Lyme Disease IgG Ab Negative (Negative) Lyme Disease IgM Ab Negative (Negative) COVID-19 Eval Order SARS-CoV-2 (PCR) (Negative) Hepatitis C Ab Screen (Neg) 03/30/21 03/30/21 03/29/21 Range/Units 07:58 07:58 14:29 WBC 8.10 (4.8-10.8) K/uL RBC 3.89 L (4.2-5.4) M/uL Hgb 13.3 (12.0-16.0) g/dL Hct 39.2 (37-47) % MCV 100.8 H (80-100) fL MCH 34.2 H (25-34) pg MCHC 33.9 (32-36) g/dL RDW Std Deviation 47.0 H (36.4-46.3) fL RDW Coeff of Kim 12.7 (11.5-14.5) % Plt Count 274 (130-400) K/uL MPV 8.8 (7.4-10.4) fL Immature Gran % (Auto) 0.1 % Neut % (Auto) 69.9 % Lymph % (Auto) 15.8 % [place] % (Auto) 10.9 % Eos % (Auto) 2.8 % Baso % (Auto) 0.5 % Neut # (Auto) 5.66 (1.4-6.5) K/uL Lymph # (Auto) 1.28 (1.2-3.4) K/uL [place] # (Auto) 0.88 H (0.11-0.59) K/uL Eos # (Auto) 0.23 (0-0.5) K/uL Baso # (Auto) 0.04 (0-0.2) K/uL Immature Gran # (Auto) 0.01 (0.00-0.02) K/uL Sodium (136-145) mmol/L Potassium (3.5-5.1) mmol/L Chloride (98-107) mmol/L Carbon Dioxide (21-32) mmol/L Anion Gap (3-11) BUN (7-18) mg/dl Creatinine 0.74 (0.6-1.2) mg/dl Est Cr Clr Drug Dosing 61.8 ml/min Est GFR ( Amer) 102.8 ml/min Est GFR (Non-Af Amer) 88.7 ml/min BUN/Creatinine Ratio (10-20) Glucose (70-99) mg/dl Calcium (8.5-10.1) mg/dl Total Bilirubin (0.2-1) mg/dl AST (15-37) U/L ALT (12-78) U/L Alkaline Phosphatase (45-117) U/L Total Protein (6.4-8.2) gm/dl Albumin (3.4-5.0) gm/dl Globulin (2.5-4.0) gm/dl Albumin/Globulin Ratio (0.9-2) Vitamin B12 (193-986) pg/ml Folate (>5.38) ng/ml Urine Color Urine Appearance (Clear) Urine pH (4.5-7.5) Ur Specific [place] (1.000-1.030) Urine Protein (Negative) Urine Glucose (UA) (Negative) Urine Ketones (Negative) Urine Blood (Negative) Urine Nitrite (Negative) Urine Bilirubin (Negative) Urine Urobilinogen (Negative) Ur Leukocyte Esterase (Negative) Lyme Disease IgG Ab (Negative) Lyme Disease IgM Ab (Negative) COVID-19 Eval Order SARS-CoV-2 (PCR) NEGATIVE (Negative) Hepatitis C Ab Screen (Neg) 03/29/21 03/29/21 03/29/21 Range/Units 14:29 14:29 14:27 WBC (4.8-10.8) K/uL RBC (4.2-5.4) M/uL Hgb (12.0-16.0) g/dL Hct (37-47) % MCV (80-100) fL MCH (25-34) pg MCHC (32-36) g/dL RDW Std Deviation (36.4-46.3) fL RDW Coeff of Kim (11.5-14.5) % Plt Count (130-400) K/uL MPV (7.4-10.4) fL Immature Gran % (Auto) % Neut % (Auto) % Lymph % (Auto) % [place] % (Auto) % Eos % (Auto) % Baso % (Auto) % Neut # (Auto) (1.4-6.5) K/uL Lymph # (Auto) (1.2-3.4) K/uL [place] # (Auto) (0.11-0.59) K/uL Eos # (Auto) (0-0.5) K/uL Baso # (Auto) (0-0.2) K/uL Immature Gran # (Auto) (0.00-0.02) K/uL Sodium (136-145) mmol/L Potassium (3.5-5.1) mmol/L Chloride (98-107) mmol/L Carbon Dioxide (21-32) mmol/L Anion Gap (3-11) BUN (7-18) mg/dl Creatinine (0.6-1.2) mg/dl Est Cr Clr Drug Dosing ml/min Est GFR ( Amer) ml/min Est GFR (Non-Af Amer) ml/min BUN/Creatinine Ratio (10-20) Glucose (70-99) mg/dl Calcium (8.5-10.1) mg/dl Total Bilirubin (0.2-1) mg/dl AST (15-37) U/L ALT (12-78) U/L Alkaline Phosphatase (45-117) U/L Total Protein (6.4-8.2) gm/dl Albumin (3.4-5.0) gm/dl Globulin (2.5-4.0) gm/dl Albumin/Globulin Ratio (0.9-2) Vitamin B12 (193-986) pg/ml Folate (>5.38) ng/ml Urine Color Yellow Urine Appearance Clear (Clear) Urine pH 6.5 (4.5-7.5) Ur Specific [place] 1.007 (1.000-1.030) Urine Protein Negative (Negative) Urine Glucose (UA) Negative (Negative) Urine Ketones Negative (Negative) Urine Blood Negative (Negative) Urine Nitrite Negative (Negative) Urine Bilirubin Negative (Negative) Urine Urobilinogen Negative (Negative) Ur Leukocyte Esterase Negative (Negative) Lyme Disease IgG Ab (Negative) Lyme Disease IgM Ab (Negative) COVID-19 Eval Order Covid19 at [facility] SARS-CoV-2 (PCR) (Negative) Hepatitis C Ab Screen Neg (Neg) 03/29/21 03/29/21 Range/Units 14:27 14:27 WBC 8.67 (4.8-10.8) K/uL RBC 4.38 (4.2-5.4) M/uL Hgb 14.8 (12.0-16.0) g/dL Hct 43.9 (37-47) % MCV 100.2 H (80-100) fL MCH 33.8 (25-34) pg MCHC 33.7 (32-36) g/dL RDW Std Deviation 46.8 H (36.4-46.3) fL RDW Coeff of Kim 12.7 (11.5-14.5) % Plt Count 267 (130-400) K/uL MPV 9.0 (7.4-10.4) fL Immature Gran % (Auto) 0.1 % Neut % (Auto) 67.1 % Lymph % (Auto) 19.8 % [place] % (Auto) 10.3 % Eos % (Auto) 2.2 % Baso % (Auto) 0.5 % Neut # (Auto) 5.82 (1.4-6.5) K/uL Lymph # (Auto) 1.72 (1.2-3.4) K/uL [place] # (Auto) 0.89 H (0.11-0.59) K/uL Eos # (Auto) 0.19 (0-0.5) K/uL Baso # (Auto) 0.04 (0-0.2) K/uL Immature Gran # (Auto) 0.01 (0.00-0.02) K/uL Sodium 133 L (136-145) mmol/L Potassium 3.5 (3.5-5.1) mmol/L Chloride 100 (98-107) mmol/L Carbon Dioxide 28 (21-32) mmol/L Anion Gap 5.0 (3-11) BUN 8 (7-18) mg/dl Creatinine 0.73 (0.6-1.2) mg/dl Est Cr Clr Drug Dosing 68.1 ml/min Est GFR ( Amer) 104.5 ml/min Est GFR (Non-Af Amer) 90.1 ml/min BUN/Creatinine Ratio 11.7 (10-20) Glucose 89 (70-99) mg/dl Calcium 9.2 (8.5-10.1) mg/dl Total Bilirubin 0.7 (0.2-1) mg/dl AST 24 (15-37) U/L ALT 28 (12-78) U/L Alkaline Phosphatase 85 (45-117) U/L Total Protein 8.1 (6.4-8.2) gm/dl Albumin 4.2 (3.4-5.0) gm/dl Globulin 3.9 (2.5-4.0) gm/dl Albumin/Globulin Ratio 1.1 (0.9-2) Vitamin B12 (193-986) pg/ml Folate (>5.38) ng/ml Urine Color Urine Appearance (Clear) Urine pH (4.5-7.5) Ur Specific [place] (1.000-1.030) Urine Protein (Negative) Urine Glucose (UA) (Negative) Urine Ketones (Negative) Urine Blood (Negative) Urine Nitrite (Negative) Urine Bilirubin (Negative) Urine Urobilinogen (Negative) Ur Leukocyte Esterase (Negative) Lyme Disease IgG Ab (Negative) Lyme Disease IgM Ab (Negative) COVID-19 Eval Order SARS-CoV-2 (PCR) (Negative) Hepatitis C Ab Screen (Neg) Diagnostic Findings Knee CT 03/29/21 17:58 CT knee RT w con HISTORY: 61 years-old Female celluitis RLE acute pain and swelling of the right lower extremity COMPARISON: None TECHNIQUE: Multiple axial CT images of the right lower extremity were obtained following the intravenous ministration 94 mL Optiray 320. A dose lowering technique was used consistent with the principals of GLEDNY. FINDINGS: Mild subcutaneous edema and skin thickening involves the posterior knee. No fluid collection or opaque foreign body. No enhancing mass. The musculature is within normal limits. Tendons and ligaments are not well evaluated by CT technique. Minimal tricompartmental osteoarthritis. No large joint effusion. No acute fracture, dislocation, osteochondral defect or intra-articular loose body. IMPRESSION: 1. No acute fracture. 2. Mild subcutaneous edema and skin thickening of the posterior knee suggestive of cellulitis. No fluid collection. 3. No joint effusion. ACT 112: Negative or not required by law. The above report was generated using voice recognition software. It may contain grammatical, syntax or spelling errors. Electronically signed by: Montez Rosario M.D. 03/29/2021 8:23 PM PG Care Time/CCT Total # of Minutes Spent Total Time Spent with Patient: Total time spent is greater than 50% in coordination of care (as documented) at patient's floor/unit and/or counseling patient: Coding Level of Care Code 37106 Inpt Consult Level 3 Diagnoses Cellulitis of leg L03.119 Cutaneous abscess of right lower extremity L02.415 Migraine with aura and without status migrainosus, not intractable G43.109 DVT prophylaxis Z29.9
[2021-03-30] MEDS: PSYLLIUM 58.6% POWDER PACKET PO SCH (11:39)
[2021-03-31] MEDS ORDERED: VANCOMYCIN TROUGH ONE (05:30)
[2021-03-31] MEDS: PIPERACILLIN/TAZOBACTAM 3.375 GM in DEXTROSE 5% 100 ML IV SCH (06:08)
[2021-03-31] MEDS: VANCOMYCIN HCL 1,000 MG in SODIUM CHLORIDE 0.9% 250 ML IV SCH (06:39)
--- NOTE | 2021-03-31 07:51 | Hospitalist Progress Note ---
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 Could not have converted, but either way Doxy will cover at discharge WBC have been wnl, afebrile Continue to monitor response (2) Cutaneous abscess of right lower extremity: Plan: as above (3) Migraine with aura and without status migrainosus, not intractable: Plan: had headache yesterday -- stress/anxiety/infection chronic hx -- triptan available prn (4) DVT prophylaxis: Plan: --> Ambulation encouraged --> has been up and walking the halls Thank you for allowing hospitalist service to participate in the care of Ms Salmeron. Rx sent for doxy, work note placed on chart. F/u with general surgery next week to monitor response recommended. Admission and Anticipated Discharge Date Admission Date: March 29, 2021 Subjective Eval this morning. Afebrile, pain tolerable and not increased. Erythema to distal portion of area improved but does have some to medial knee. Less induration. Discussed with Dr. Xie and he will complete d/c summary but we will have Dr. Edmond also look after case today. Agreeable to d/c on Doxy and monitor for warning signs vs Doxy + additional strep coverage. Review of Systems Review of Systems: All systems reviewed & are unremarkable except as noted in HPI & below Physical Exam Physical Exam: WN, WD, laying in bed on phone. No acute distress Eyes anicteric, no scleral abn appreciated ENT mmm, trachea midline without deviation Resp: CTAB, no accessory muscle use, no w/c/r CV: RRR, no m/r/g MSK: moves all extremities Skin: 3cm diameter area of induration to posterior R thigh, incision noted from prior I&D, indurated (reported less), no purulent material able to be expressed, minimal tenderness to palpation. erythema decreased to distal thigh but slightly spread to medial knee. no lymphangitic streaking Results & Data Results & Data ([facility]) Vital Signs (Past 12 Hours) Vital Signs Temp Pulse Resp BP Pulse Ox 03/30/21 22:45 36.6 C 76 16 90/54 L 97 Laboratory Results 03/31/21 03/31/21 Range/Units 06:33 06:33 Creatinine 0.76 (0.6-1.2) mg/dl Est Cr Clr Drug Dosing 60.1 ml/min Est GFR ( Amer) 99.5 ml/min Est GFR (Non-Af Amer) 85.9 ml/min Vancomycin Trough 10.6 (See Comment) mcg/ml PG Care Time/CCT Total # of Minutes Spent Total Time Spent with Patient: Total time spent is greater than 50% in coordination of care (as documented) at patient's floor/unit and/or counseling patient: Coding Level of Care Code 75097 Subseq Hosp Care Lvl 1 Diagnoses Cellulitis of leg L03.119 Cutaneous abscess of right lower extremity L02.415 Migraine with aura and without status migrainosus, not intractable G43.109 DVT prophylaxis Z29.9
[2021-03-31 08:00] LABS: Creatinine Clr Calc Pharmacy 60.1 ml/min; Est GFR (African American) 99.5 ml/min; Est GFR (Non-African American) 85.9 ml/min
[2021-03-31] MEDS: MULTIVITAMIN TAB PO SCH (08:08)
[2021-03-31] MEDS: PRENATAL VITAMIN 1 TAB PO SCH (08:09)
[2021-03-31] MEDS: PSYLLIUM 58.6% POWDER PACKET PO SCH (08:09)
[2021-03-31] MEDS: valACYclovir HCL 500 MG TABLET PO SCH (08:09)
[2021-03-31] MEDS: MAGNESIUM OXIDE 400 MG TAB PO SCH (08:09)
[2021-03-31] MEDS: terbinafine HCL 250 MG TAB PO SCH (08:09)
--- NOTE | 2021-03-31 10:59 | Pharmacy Report ---
Pharmacy Abx Dose Short Note - Date of Service March 31, 2021 - Assessment & Plan Assessment 61 year old F receiving IV Vancomycin + Zosyn for treatment of Cellulitis Day # 3 of antimicrobial therapy. Afebrile, pain tolerable and not increased. Erythema to distal portion of area improved but does have some to medial knee. Less induration. Per hospitalist team: Discussed with Dr. Xie and he will complete d/c summary but we will have Dr. Edmond also look after case today. Agreeable to d/c on Doxy and monitor for warning signs vs Doxy + additional strep coverage. Plan Vancomycin- 1000mg IV Q12H - continue until discharge Patient meets criteria for vancomycin AUC dosing nomogram AUC/SHAYNA is the preferred PK/PD target for vancomycin Target AUC/SHAYNA = 400-600 Trough level of 10.6 mcg/mL after 3 doses (Drawn earlier than steady state) is predicted to achieve target AUC/SHAYNA AUC guided dosing is effective and associated with decreased risk of nephrotoxicity Zosyn 3.375g IV Q8H for CrCl > 20ml/min Pharmacy will continue to follow and will adjust dose/frequency as necessary. Thank you.
--- NOTE | 2021-03-31 11:46 | Surgery Progress Note ---
Date of Service March 31, 2021 Assessment & Plan (1) Cutaneous abscess of right lower extremity: Plan: discharge on po abx doing well Admission and Anticipated Discharge Date Admission Date: March 29, 2021 Subjective pain improved doing well Review of Systems Constitutional: no fever and no chills Physical Exam Musculoskeletal: Right leg erythema improved, no fluctuance, responding well to abx Results & Data ([facility]) Vital Signs (Past 12 Hours) Vital Signs Temp Pulse Resp BP Pulse Ox 03/31/21 08:11 36.7 C 73 16 101/70 99
--- NOTE | 2021-04-02 10:42 | Discharge Summary ---
Date of Service April 02, 2021 Admission HPI Per Admitting Provider 61 y/o female with worsening cellulitis RLE after I&D was performed in the clinic [address] Todd. Seen in follow-up and sent for additional imaging and IV therapy. Principal Diagnosis cellulitis of leg Discharge Exam Musculoskeletal Right leg erythema improved. No fluctuance. No drainage. Discharge Data Allergies Allergy/AdvReac Type Severity Reaction Status Date / Time No Known Drug Allergies Allergy Unknown . Verified 03/29/21 16:22 Consultations 03/29/21 17:58 Consult Hospitalist Routine Ordered Studies 03/29/21 17:58 CT knee RT w con Routine Hospital Course (1) Cellulitis of leg: This is a 61 y/o female with worsening cellulitis of the RLE after I&D was performed in the clinic [address] Todd. Patient was seen in follow-up on 03/29/21 and sent to the ER for additional imaging and IV therapy. CT showed mild subcutaneous edema and skin thickening of the posterior knee suggestive of cellulitis. No fluid collection. WBC 8. Patient was admitted and started on IV abx (vanco/zosyn) therapy. On 03/30 area of cellulitis found to be improving. There was history of a potential tick bite in the area, therefore hospitalists consulted for assistance with obtaining appropriate labs/workup for possible tickborne infection. On 03/31 area of cellulitis continued to improve. Patient afebrile with normal WBC. Plan of care discussed and patient was discharged on a course of doxycycline for coverage of MRSA and tickborne illness with plans to follow up in clinic for ongoing monitoring. Patient agreeable with plan and was discharged to home without event. Total Time Total Time Spent Total Time Spent (In Minutes): 10 Discharge Plan Discharge Items Patient Disposition: Home - Self-Care Reason For Visit: CELLULITIS Discharge Diagnosis: Cellulitis Goals: You have been hospitalized for an acute medical problem. During your stay at [facility], we have made an effort to correct the problem that brought you to the hospital while keeping you as comfortable as possible. Medications were used to bring your condition under control and your discharge instructions will include directions for any medications you should take after leaving the hospital. Please make sure you see your Primary Care Provider as part of your follow up plan. Activity: As commented below Lifting: Gradually increase as tolerated Bathing: No limitations Bathing Comment: shower only Sexual Activity: When tolerated Exercise/Sports: None Driving/Machine Use: No limitations Weightbearing: Full weightbearing Non-emergency contact: Primary Care Provider and Surgeon Call non-emergency contact if: you have any medication questions, your symptoms worsen, your pain is not controlled and you have a fever Follow-up/Referrals: Gennaro Todd MD, FACS [Physician] - (Patient is requesting to make her own hospital f/u visit.) William Polo, [Primary Care Provider] - (Patient is requesting to make her own PCP f/u visit.) Diet: Regular Addtl Attending Provider Instructions: dressings daily Addtl Profile Saw Operator Provider Instructions: You have been sent prescription for doxycycline 100mg by mouth to take for an additional 8 days to complete 10 day course. Please take with a full glass of water to prevent any esophageal issues. While taking this medication, it can interact with calcium containing medications and you should hold your calcium citrate, vitamin D while on these medications and can resume after completion. You should follow up with your PCP/surgeon to monitor your response. You can have the antibiotics extended if needed based on response if slow to respond. You should monitor for any increased pain/swelling/fever and contact your PCP or general surgeon immediately if these occur. Pending Studies at Discharge: No Stand-Alone Forms: My [facility], Work/School Release, Smoking Cessation Medications and DC Order Prescriptions: New Metamucil (with sugar) 3.4 gram Powder In Packet 1 ea PO QAM Qty: 1 RF: 0 doxycycline hyclate 100 mg capsule 100 mg PO BID 9 Days Qty: 18 RF: 0 Continued rizatriptan 10 mg tablet 10 mg PO Q2H MDD 3 tablets/day PRN (Reason: migraine headache) Qty: 9 RF: 5 multivitamin tablet 1 tab PO QAM RF: 0 calcium citrate 250 mg calcium tablet 250 mg PO QAM RF: 0 cholecalciferol (vitamin D3) 5,000 unit capsule 5,000 units PO QAM RF: 0 zinc 50 mg tablet 50 mg PO QAM RF: 0 prenat.vits,iwlmar,[id number] Tablet 1 tab PO QAM RF: 0 ondansetron 4 mg tablet,disintegrating 4 mg PO TID PRN (Reason: nausea and vomiting) Qty: 30 RF: 0 Probiotic 3 billion cell capsule 3,000 mmu cells PO QAM RF: 0 magnesium 250 mg Tablet 500 mg PO QAM RF: 0 valacyclovir 500 mg tablet 500 mg PO QAM RF: 0 Discontinued cephalexin 500 mg capsule 500 mg PO QID 10 Days Qty: 40 RF: 0 Discharge Orders: Discharge Order (Routine); Ordered 03/31/21 Ordered By: Diony Black/Other Patient Handouts: Discharge Instructions for Cellulitis, ED Cellulitis Admission Data Admit Date/Time: 03/29/21 13:36 Attending Provider: Luis Enrique Xie Admit Provider: Neville Galarza Jr Primary Care Provider: William Polo Other Interventions: Discharge Summary Assessment (RN) Last Done: 03/31/21 12:02 Coding Level of Care Code D/C DAY MANAGEMENT <30 MINS Diagnoses Cellulitis of leg L03.119
--- NOTE | 2021-04-03 07:38 | Discharge Summary ---
Date of Service April 03, 2021 Admission HPI Per Admitting Provider 61 y/o female with worsening cellulitis RLE after I&D was performed in the clinic [address] Todd. Seen in follow-up and sent for additional imaging and IV therapy. Principal Diagnosis Cellulitis RLE Discharge Exam Constitutional WD/WN, vitals as above Skin Erythema RLE improved Discharge Data Allergies Allergy/AdvReac Type Severity Reaction Status Date / Time No Known Drug Allergies Allergy Unknown . Verified 03/29/21 16:22 Consultations 03/29/21 17:58 Consult Hospitalist Routine Ordered Studies 03/29/21 17:58 CT knee RT w con Routine Hospital Course (1) Cellulitis of le61 y/o female with worsening cellulitis of RLE was admitted two days after I&D was performed in the office. Gram stain showed gram positive bacilli and she was started on Zosyn and Vancomycin. CT did not show any additional abscess. Her cellulitis was improving and after three days of IV therapy she was stable for discharge home on doxycycline for presumed tick bite. Total Time Total Time Spent Total Time Spent (In Minutes): 15 Discharge Plan Discharge Items Patient Disposition: Home - Self-Care Reason For Visit: CELLULITIS Discharge Diagnosis: Cellulitis Goals: You have been hospitalized for an acute medical problem. During your stay at [facility], we have made an effort to correct the problem that brought you to the hospital while keeping you as comfortable as possible. Medications were used to bring your condition under control and your discharge instructions will include directions for any medications you should take after leaving the hospital. Please make sure you see your Primary Care Provider as part of your follow up plan. Activity: As commented below Lifting: Gradually increase as tolerated Bathing: No limitations Bathing Comment: shower only Sexual Activity: When tolerated Exercise/Sports: None Driving/Machine Use: No limitations Weightbearing: Full weightbearing Non-emergency contact: Primary Care Provider and Surgeon Call non-emergency contact if: you have any medication questions, your symptoms worsen, your pain is not controlled and you have a fever Follow-up/Referrals: Gennaro Todd MD, FACS [Physician] - (Patient is requesting to make her own hospital f/u visit.) William Polo DO [Primary Care Provider] - (Patient is requesting to make her own PCP f/u visit.) Diet: Regular Addtl Attending Provider Instructions: dressings daily Addtl Explosive Operator Provider Instructions: You have been sent prescription for doxycycline 100mg by mouth to take for an additional 8 days to complete 10 day course. Please take with a full glass of water to prevent any esophageal issues. While taking this medication, it can interact with calcium containing medications and you should hold your calcium citrate, vitamin D while on these medications and can resume after completion. You should follow up with your PCP/surgeon to monitor your response. You can have the antibiotics extended if needed based on response if slow to respond. You should monitor for any increased pain/swelling/fever and contact your PCP or general surgeon immediately if these occur. Pending Studies at Discharge: No Stand-Alone Forms: My [facility], Work/School Release, Smoking Cessation Medications and DC Order Prescriptions: New Metamucil (with sugar) 3.4 gram Powder In Packet 1 ea PO QAM Qty: 1 RF: 0 doxycycline hyclate 100 mg capsule 100 mg PO BID 9 Days Qty: 18 RF: 0 Continued rizatriptan 10 mg tablet 10 mg PO Q2H MDD 3 tablets/day PRN (Reason: migraine headache) Qty: 9 RF: 5 multivitamin tablet 1 tab PO QAM RF: 0 calcium citrate 250 mg calcium tablet 250 mg PO QAM RF: 0 cholecalciferol (vitamin D3) 5,000 unit capsule 5,000 units PO QAM RF: 0 zinc 50 mg tablet 50 mg PO QAM RF: 0 prenat.vits,wilmar,[id number] Tablet 1 tab PO QAM RF: 0 ondansetron 4 mg tablet,disintegrating 4 mg PO TID PRN (Reason: nausea and vomiting) Qty: 30 RF: 0 Probiotic 3 billion cell capsule 3,000 mmu cells PO QAM RF: 0 magnesium 250 mg Tablet 500 mg PO QAM RF: 0 valacyclovir 500 mg tablet 500 mg PO QAM RF: 0 Discontinued cephalexin 500 mg capsule 500 mg PO QID 10 Days Qty: 40 RF: 0 Discharge Orders: Discharge Order (Routine); Ordered 03/31/21 Ordered By: Diony Black/Other Patient Handouts: Discharge Instructions for Cellulitis, ED Cellulitis Admission Data Admit Date/Time: 03/29/21 13:36 Attending Provider: Luis Enrique Xie Admit Provider: Neville Galarza Jr Primary Care Provider: William Polo Other Interventions: Discharge Summary Assessment (RN) Last Done: 03/31/21 12:02 Coding Level of Care Code D/C DAY MANAGEMENT <30 MINS Diagnoses Cellulitis of leg L03.119
== END 2021-03-31 13:11 | disposition home or self-care (01) ==
LOC: ED 11:51 → INTOOBSV 13:36 → 3E 13:36